=== PATIENT | male | born 1990 | race African-American/Black ===

== ENCOUNTER 2019-12-26 15:52 | Emergency (ER) | payer SELFPAY ==
[~2019-12-26] VITALS: Ht 165.1 cm; Wt 72.0 kg
[2019-12-26] MEDS ORDERED: IBUPROFEN 600MG TABLET PO ONE (16:15)
[2019-12-26 17:18] VITALS: BP 138/83
== END 2019-12-26 17:23 | disposition home or self-care (01) ==
LOC: ER 15:52
DX: L03.114 Cellulitis of left upper limb (principal)
CPT/HCPCS: 73130; 99283